=== PATIENT | female | born 1990 | race Caucasian/White ===

== ENCOUNTER 2021-02-20 11:57 | Outpatient (CLI) | payer BC | END 2021-02-20 11:58 | disposition home or self-care (01) | LOC: LAB 11:57 | PROVIDERS: ATTEND Nurse Practitioner Family | DX: Z79.899 Other long term (current) drug therapy (principal); L70.8 Other acne | CPT/HCPCS: 36415; 84132 ==

== ENCOUNTER 2021-04-04 09:16 | Outpatient (CLI) | payer BC, OTHER | END 2021-04-04 09:17 | disposition home or self-care (01) | LOC: LAB 09:16 | PROVIDERS: ATTEND Nurse Practitioner Family | DX: Z51.81 Encounter for therapeutic drug level monitoring (principal) | CPT/HCPCS: 36415; 84132 ==

== ENCOUNTER 2022-01-22 07:36 | Outpatient (CLI) | payer BC, OTHER ==
[2022-01-22 08:29] LABS: T4 (THYROXINE) 9.74 ug/dL (6.09-12.23)
[2022-01-22 08:33] LABS: THYROID STIMULATING HORMONE 1.13 uIU/mL (0.34-5.60)
[2022-01-22 09:01] LABS: FOLLICLE STIMULATING HORMONE 8.14 mIU/mL
[2022-01-22 09:02] LABS: LUTEINIZING HORMONE 10.47 mIU/mL
[2022-01-23 07:09] LABS: ESTRADIOL 28.4 pg/mL (.); PROGESTERONE 0.2 ng/mL (.)
[2022-01-23 15:09] LABS: FREE TESTOSTERONE(DIRECT) 2.2 pg/mL (0.0-4.2)
== END 2022-01-22 07:37 | disposition home or self-care (01) ==
LOC: LAB 07:36
PROVIDERS: ATTEND Nurse Practitioner
DX: E28.2 Polycystic ovarian syndrome (principal); N92.6 Irregular menstruation, unspecified
CPT/HCPCS: 36415; 82397; 82627; 82670; 83001; 83002; 84144; 84402; 84403; 84436; 84443

== ENCOUNTER 2022-03-04 08:00 | Outpatient (CLI) | payer BC, OTHER ==
[2022-03-04 16:52] LABS: BILIRUBIN,URINE NEGATIVE (NEGATIVE); GLUCOSE, URINE (UA) NEGATIVE (NEGATIVE); KETONES,URINE (UA) NEGATIVE (NEGATIVE); LEUKOCYTE ESTERASE, URINE NEGATIVE (NEGATIVE); NITRITE,URINE NEGATIVE (NEGATIVE); OCCULT BLOOD,URINE NEGATIVE (NEGATIVE); PROTEIN,URINE NEGATIVE (NEGATIVE); UROBILINOGEN,URINE 0.2 (NORMAL) E.U./dL (NORMAL)
[2022-03-04 16:54] LABS: CLARITY,URINE CLEAR (CLEAR)
[2022-03-04 17:17] LABS: BACTERIA,URINE Rare /HPF (None Seen); RBC,URINE 0-5 /HPF (0-5); SQUAMOUS EPITHELIAL CELL,UR RARE Squamous (<= Few); WBC,URINE 0-3 /HPF (0-5)
== END 2022-03-04 23:59 | disposition home or self-care (01) ==
LOC: LAB 08:00
PROVIDERS: ATTEND Nurse Practitioner
DX: Z34.90 Encounter for supervision of normal pregnancy, unspecified, unspecified trimester (principal)
CPT/HCPCS: 81001; 87086

== ENCOUNTER 2022-03-20 07:16 | Outpatient (CLI) | payer BC, OTHER ==
--- NOTE | 2022-03-20 16:55 | Ultrasound Report ---
PROCEDURE: OB First Trimester w/TV INDICATIONS: POSITIVE TEST OUTSIDE/PRIOR DATING DATA: Last menstrual period (LMP): 01/20/2022. LMP-based estimated date of delivery (SABRA): 10/27/2022. First dating scan (date and location): 03/20/2022. Estimated date of delivery (SABRA) from first dating scan: 10/27/2022. TECHNIQUE: Real-time scanning was performed of the fetus and maternal pelvic organs, with image documentation. Endovaginal scanning was also performed to better visualize the fetus and maternal ovaries. COMPARISON: None FINDINGS: A single living intrauterine gestation is present with a heart rate of 180 bpm. Peak-rump michele th is 19 mm coarse 0.18 weeks 3 day gestation. Measurement variability in dating: +/- 4 weeks by LMP , +/- 7 days by mean sac diameter (use before 6 weeks gestation if crown-rump length not able to be m easured), +/- 5 days by crown-rump length (6-12 weeks gestation). Maternal organs: Left-sided corpus luteal cyst measuring 21 mm. IMPRESSION: Single living intrauterine gestation. Reviewed by: Bethel Jang MD on 03/20/2022 4:53 PM PST Approved by: Bethel Jang MD on 03/20/2022 4:53 PM PST Station ID: [id number]
== END 2022-03-20 07:17 | disposition home or self-care (01) ==
LOC: DI 07:16
PROVIDERS: ATTEND Nurse Practitioner
DX: Z34.91 Encounter for supervision of normal pregnancy, unspecified, first trimester (principal)

== ENCOUNTER 2022-04-01 08:00 | Outpatient (CLI) | payer BC, OTHER ==
[2022-04-01 23:06] LABS: CHLAMYDIA TRACHOMATIS DNA NEGATIVE (NEGATIVE); NEISSERIA GONORRHOEAE DNA NEGATIVE (NEGATIVE); TRICHOMONAS VAGINALIS DNA NEGATIVE (NEGATIVE)
== END 2022-04-01 23:59 | disposition home or self-care (01) ==
LOC: LAB 08:00
PROVIDERS: ATTEND Nurse Practitioner
DX: Z11.3 Encounter for screening for infections with a predominantly sexual mode of transmission (principal)
CPT/HCPCS: 87491; 87591; 87661

== ENCOUNTER 2022-04-01 15:11 | Outpatient (CLI) | payer OTHER ==
[2022-04-01 22:24] LABS: BACTERIAL VAGINOSIS DNA NEGATIVE (NEGATIVE); CANDIDA GLABRATA DNA NEGATIVE (NEGATIVE); CANDIDA GROUP DNA NEGATIVE (NEGATIVE); CANDIDA KRUSEI DNA NEGATIVE (NEGATIVE); TRICHOMONAS VAGINALIS DNA NEGATIVE (NEGATIVE)
== END 2022-04-01 15:12 | disposition home or self-care (01) ==
LOC: LAB.N 15:11
PROVIDERS: ATTEND Nurse Practitioner
DX: N89.8 Other specified noninflammatory disorders of vagina (principal); Z11.3 Encounter for screening for infections with a predominantly sexual mode of transmission
CPT/HCPCS: 81514; 87491; 87591; 87661

== ENCOUNTER 2022-04-02 12:28 | Outpatient (CLI) | payer OTHER | END 2022-04-02 12:29 | disposition home or self-care (01) | LOC: LAB 12:28 | PROVIDERS: ATTEND Nurse Practitioner | DX: Z36.89 Encounter for other specified antenatal screening (principal) | CPT/HCPCS: 36415 ==

== ENCOUNTER 2022-04-19 13:21 | Emergency (ER) | payer OTHER ==
[2022-04-19] MEDS ORDERED: ONDANSETRON 4 MG/2 ML VIAL IVP STA (13:34)
[2022-04-19 13:51] LABS: BASOPHILS % (AUTO) 0.2 %; EOSINOPHILS % (AUTO) 0.1 %; HCT - HEMATOCRIT 44.2 % (37.0-47.0); HGB - HEMOGLOBIN 14.6 g/dL (12.0-16.0); LYMPHOCYTES # (AUTO) 1.7 10^3/uL (1.5-3.5); LYMPHOCYTES % (AUTO) 13.9 %; MEAN CORPUSCULAR HEMOGLOBIN 28.3 pg (27.0-31.0); MEAN CORPUSCULAR VOLUME 85.7 fL (81.0-99.0); MEAN PLATELET VOLUME 10.5 fL (7.9-10.8); MONOCYTES # (AUTO) 0.8 10^3/uL (0.0-1.0); MONOCYTES % (AUTO) 6.4 %; NEUTROPHILS # (AUTO) 9.8 10^3/uL (1.5-6.6); NEUTROPHILS % (AUTO) 79.2 %; PLT - PLATELET COUNT 261 10^3/uL (130-450); RED BLOOD COUNT 5.16 10^6/uL (4.20-5.40); RED CELL DISTRIBUTION WIDTH 12.6 % (12.0-15.0); WHITE BLOOD COUNT 12.4 x10^3/uL (4.8-10.8)
--- NOTE | 2022-04-19 13:57 | ED Physician Documentation ---
History of Present Illness - Stated complaint Stated Complaint: N/V ANXIOUSE - Chief complaint Chief Complaint: MHE - History obtained from History obtained from: Patient - Additonal information Additional information: This is a 31-year-old female with a past medical history of anxiety who is about 12 weeks who presents with anxiety as well as nausea. She states she has dealt with nausea and vomiting throughout first trimester though she feels like the morning sickness is fading but now she feels more nauseous which she believes is related to anxiety and panic attacks. Anxiety can OccurAny point throughout the day, and does not seem to be triggered by any particular thoughts but just a general feeling of panic. She feels her heart race she feels sweaty she feels heart palpitations, And feels nauseous but no vomiting. She denies any thoughts of self harm. She has been in mental health therapy in the past for anxiety and her doctor recently prescribed her Zoloft and hydroxyzine which she is taking but has noted no relief yet. Patient is also moving out of the area to [facility] in the next couple of days which she does endorse is an additional stressor that may be contributing. She states initial first trimester labs were all normal to her knowledge, and has no other health concerns. Denies fever, chills, cp, dyspnea, abd pain, diarrhea, dysuria or other urinary sx, vaginal bleeding. Review of Systems Constitutional: reports: Reviewed and negative (Other systems reviewed and are negative except as noted in HPI) PD PAST MEDICAL HISTORY - Present Medications Home Medications: Ambulatory Orders Medication Instructions Recorded Confirmed Pnv No.95/Ferrous Fum/Folic AC 1 each PO DAILY 04/19/22 04/19/22 [ Tablet] Sertraline [Zoloft] 50 mg PO DAILY 04/19/22 04/19/22 hydrOXYzine pamoate [Hydroxyzine 50 mg ORAL BID PRN 04/19/22 04/19/22 Pamoate] metFORMIN [Glucophage] 500 mg PO DAILY 04/19/22 04/19/22 - Allergies Allergies/Adverse Reactions: Allergies Allergy/AdvReac Type Severity Reaction Status Date / Time No Known Drug Allergies Allergy Verified 04/19/22 13:28 PD ED PE NORMAL - Vitals Vital signs reviewed: Yes - General General: Alert and oriented X 3, No acute distress, Well developed/nourished - HEENT HEENT: Atraumatic, Pharynx benign - Neck Neck: Supple, no meningeal sign, No JVD - Cardiac Cardiac: RRR, No murmur - Respiratory Respiratory: No respiratory distress, Clear bilaterally - Abdomen Abdomen: Normal bowel sounds, Soft, Non tender, Non distended - Derm Derm: Normal color, Warm and dry, No rash - Neuro Neuro: Alert and oriented X 3 Eye Opening: Spontaneous Motor: Obeys Commands Verbal: Oriented GCS Score: 15 - Psych Psych: Normal mood, Normal affect Results - Vitals Vitals: Vital Signs - 24 hr 04/19/22 04/19/22 13:24 15:22 Temperature 37.1 C Heart Rate 97 85 Respiratory 16 15 Rate Blood Pressure 132/89 H 115/77 O2 Saturation 97 100 Oxygen O2 Source Room air - Labs Labs: Laboratory Tests 04/19/22 04/19/22 04/19/22 13:45 13:45 13:45 WBC 12.4 H RBC 5.16 Hgb 14.6 Hct 44.2 MCV 85.7 MCH 28.3 MCHC 33.0 RDW 12.6 Plt Count 261 MPV 10.5 Neut # (Auto) 9.8 H Lymph # (Auto) 1.7 [place] # (Auto) 0.8 Eos # (Auto) 0.0 Baso # (Auto) 0.0 Absolute Nucleated RBC 0.00 Nucleated RBC % 0.0 Sodium 132 L Potassium 4.0 Chloride 99 L Carbon Dioxide 20 L Anion Gap 13.0 BUN 9 Creatinine 0.6 Estimated GFR (MDRD) 118 Glucose 92 Calcium 9.6 Total Bilirubin 0.9 AST 17 ALT 16 Alkaline Phosphatase 43 Total Protein 7.8 Albumin 4.0 Globulin 3.8 Albumin/Globulin Ratio 1.1 Lipase 32 TSH 0.28 L Urine Color Urine Clarity Urine pH Ur Specific [place] Urine Protein Urine Glucose (UA) Urine Ketones Urine Occult Blood Urine Nitrite Urine Bilirubin Urine Urobilinogen Ur Leukocyte Esterase Ur Microscopic Review Urine Culture Comments 04/19/22 15:00 WBC RBC Hgb Hct MCV MCH MCHC RDW Plt Count MPV Neut # (Auto) Lymph # (Auto) [place] # (Auto) Eos # (Auto) Baso # (Auto) Absolute Nucleated RBC Nucleated RBC % Sodium Potassium Chloride Carbon Dioxide Anion Gap BUN Creatinine Estimated GFR (MDRD) Glucose Calcium Total Bilirubin AST ALT Alkaline Phosphatase Total Protein Albumin Globulin Albumin/Globulin Ratio Lipase TSH Urine Color YELLOW Urine Clarity CLEAR Urine pH 6.0 Ur Specific [place] >=1.030 H Urine Protein TRACE Urine Glucose (UA) NEGATIVE Urine Ketones >=80 H Urine Occult Blood NEGATIVE Urine Nitrite NEGATIVE Urine Bilirubin NEGATIVE Urine Urobilinogen 0.2 (NORMAL) Ur Leukocyte Esterase NEGATIVE Ur Microscopic Review NOT INDICATED Urine Culture Comments NOT INDICATED PD Medical Decision Making - ED course Complexity details: reviewed old records, reviewed results, re-evaluated patient, considered differential, d/w patient, d/w family ED course: 31 yo F presented w/ anxiety during , w/ episodes of panic, not relieved by zoloft or hydroxyzine. Patient is well-appearing on physical exam, no acute distress. We did obtain labs to evaluate for any potential contributions to her anxiety and panic and they are largely reassuring though her TSH is somewhat low and will need to be followed up with her PCP as this could be contributing to sensation of heart palpitations or anxiety. The patient received 4 mg of IV Zofran and 1 L of fluid with improvement in her nausea and she had no episodes of vomiting here, no abdominal pain to suggest acute abdominal process. After extensive discussion with patient, I did offer a single dose of anxiolytic, low-dose, given her constant sensation of anxiety. I did discuss with patient that this is not something that should be continued t hroughout and I would like her to continue this discussion with her PCP/OB and mental health provider to determine ongoing treatment for anxiety during . She should continue mental health therapy, and we discussed other supportive measures. She received a one-time dose of 0.5 mg IV Ativan here after discussion of side effects and effects, and she will continue Zoloft and hydroxyzine. She has other antiemetics at home including doxylamine and metoclopramide that she can use as well if needed for Nausea.I discussed return precautions if worsening symptoms or any thoughts of self harm. Departure - Departure Disposition: 01 Home, Self Care Clinical Impression: Anxiety Condition: Good Instructions: ED Panic Attack Comments: Please continue to follow-up with your digital marketing specialist as well your mental health health provider. In general, we do not want to put you on benzodiazepines during and a combination of non pharmacologic approaches such as counseling, meditation, and deep breathing exercises with an SSRI such as the zoloft that you were started on, is a good course of action. The Zoloft that you are put on should start to work in the next few weeks and you may continue to take the hydroxyzine as needed during the day if it does not make you too sleepy, and you may take the Unisom at night to help with sleep. We did give you one small dose of ativan, a benzodiazepine, today in the ER to help with your symptoms of panice/anxiety. As we discussed, your thyroid hormone is slightly low and I would recommend that this continued to be monitored by your digital marketing specialist. The remainder of your labs are stable. Discharge Date/Time: 04/19/22 15:37
[2022-04-19 14:04] LABS: ALBUMIN/GLOBULIN RATIO 1.1 (1.0-2.2); BILIRUBIN,TOTAL 0.9 mg/dL (0.2-1.0); CALCIUM 9.6 mg/dL (8.5-10.3); CREATININE 0.6 mg/dL (0.4-1.0); TOTAL PROTEIN 7.8 g/dL (6.7-8.2)
[2022-04-19] MEDS ORDERED: SODIUM CHLORIDE 0.9% 1,000 ML IV STA (14:31)
[2022-04-19 15:04] LABS: BILIRUBIN,URINE NEGATIVE (NEGATIVE); GLUCOSE, URINE (UA) NEGATIVE (NEGATIVE); KETONES,URINE (UA) >=80 mg/dL (NEGATIVE); LEUKOCYTE ESTERASE, URINE NEGATIVE (NEGATIVE); NITRITE,URINE NEGATIVE (NEGATIVE); OCCULT BLOOD,URINE NEGATIVE (NEGATIVE); PROTEIN,URINE TRACE mg/dL (NEGATIVE); UROBILINOGEN,URINE 0.2 (NORMAL) E.U./dL (NORMAL)
[2022-04-19 15:10] LABS: CLARITY,URINE CLEAR (CLEAR)
[2022-04-19] MEDS ORDERED: LORazepam 2 MG/ML VIAL IVP STA (15:11)
[2022-04-19 15:22] VITALS: BP 115/77
== END 2022-04-19 15:37 | disposition home or self-care (01) ==
LOC: ED 13:21
DX: O99.891 Other specified diseases and conditions complicating pregnancy (principal); F41.9 Anxiety disorder, unspecified; R11.0 Nausea; R94.6 Abnormal results of thyroid function studies; Z3A.12 12 weeks gestation of pregnancy
CPT/HCPCS: 36415; 80053; 81003; 83690; 84443; 85025; 96374; 96375; 99283; 99284; J2060; 81001; 87086